=== PATIENT | male | born 1960 | race Caucasian/White ===

== ENCOUNTER → 2021-04-08 | Outpatient (CLI) | payer BC ==
[~2021-04-08] MED LIST: SODIUM CHLORIDE 0.9% 50 ML IVPB ONE; SODIUM CHLORIDE 0.9% 500 ML 500 ML in EMPTY BAG 1 BAG IV PRN; SOTROVIMAB (EUA) 500 MG in SODIUM CHLORIDE 0.9% 100 ML IVPB ONE
[2021-04-08 13:34] VITALS: RESP 16
[2021-04-08 14:09] VITALS: BP 129/79; PULSE 93; TEMP 99.1
== END ==
LOC: PROCWHC3 13:00
PROVIDERS: ATTEND Family Medicine
DX: U07.1 COVID-19 (principal); Z88.6 Allergy status to analgesic agent